=== PATIENT | female | born 1965 | race Two or more races ===

== ENCOUNTER 2019-02-22 18:05 | Inpatient (IN) | payer MEDICAID ==
[~2019-02-22] VITALS: Ht 149.9 cm; Wt 62.6 kg
[2019-02-22] MEDS ORDERED: ASPIRIN 81MG TABLET PO ONE (18:45)
[2019-02-22] MEDS ORDERED: NITROGLYCERIN 0.4MG TABLET SL SL PRN (18:45)
[2019-02-22 19:18] LABS: BASOPHILS % 1.1 % (0.0-2.0); EOSINOPHILS % 2.8 % (0.0-5.0); HEMATOCRIT. 37.1 % (36.0-48.0); HEMOGLOBIN. 12.6 g/dL (12.0-16.0); LYMPHOCYTES % 43.3 % (20.0-50.0); MEAN CORPUSCULAR HEMOGLOBIN 27.4 pg (28.0-32.0); MEAN CORPUSCULAR VOLUME 80.9 fL (81.0-99.0); MEAN PLATELET VOLUME 8.1 fl (7.4-10.4); MONOCYTES % 6.8 % (2.0-8.0); PLATELET 272 x1000/uL (130-400); RED BLOOD CELL COUNT 4.58 mill/uL (4.2-5.4); RED CELL DISTRIBUTION WIDTH 13.9 % (11.6-14.6)
[2019-02-22 19:37] LABS: CHLORIDE 107 mEq/L (98-107)
[2019-02-22] MEDS ORDERED: ACETAMINOPHEN WITH CODEINE 300/30MG TABLET PO ONE (20:15)
[2019-02-22] MEDS ORDERED: ENOXAPARIN 80MG/0.8ML SYR SUBCUT ONE (21:00)
[2019-02-22] MEDS ORDERED: CLONIDINE 0.1MG TABLET PO PRN (22:45)
[2019-02-22] MEDS ORDERED: IPRATROPIUM/ALBUTEROL 0.5-3(2.5)MG/3ML NEB NEB PRN (22:45)
[2019-02-22] MEDS ORDERED: MAGNESIUM/ALUMINUM HYDROXIDE/SIMETHICONE 30ML UDC PO PRN (22:45)
[2019-02-22] MEDS ORDERED: ONDANSETRON HCL 4MG/2ML INJ IV PRN (22:45)
[2019-02-22] MEDS ORDERED: DOCUSATE SODIUM 100MG CAPSULE PO PRN (22:45)
[2019-02-22] MEDS ORDERED: ACETAMINOPHEN 325MG TABLET PO PRN (22:45)
[2019-02-23] VITALS: BP_SYST 106; BP_DIAS 64; BP_DIAS 69
[2019-02-23 00:09] LABS: CHLORIDE 106 mEq/L (98-107)
[2019-02-23] MEDS: HYDROCODONE/ACETAMINOPHEN 5/325MG TABLET PO PRN ×4 (01:23→21:29)
[2019-02-23] MEDS ORDERED: INSU100I28 SQ (03:23)
[2019-02-23] MEDS ORDERED: METO25TA6 PO (03:23)
[2019-02-23] MEDS ORDERED: GABA-531 MT (03:23)
[2019-02-23] MEDS ORDERED: OMEG-118 MT (03:23)
[2019-02-23] MEDS ORDERED: ATOR-2 MT (03:23)
[2019-02-23] MEDS ORDERED: SERT50TA12 MT (03:23)
[2019-02-23] MEDS ORDERED: LORA10TA7 MT (03:23)
[2019-02-23] MEDS ORDERED: ASPI-1393 PO (03:23)
[2019-02-23] MEDS ORDERED: METO5TAB94 MT (03:23)
[2019-02-23] MEDS ORDERED: CHOL200074 MT (03:23)
[2019-02-23] MEDS ORDERED: ONDA4TAB5 MT (03:23)
[2019-02-23] MEDS ORDERED: ALBU4TAB6 MT (03:23)
[2019-02-23] MEDS ORDERED: CLOP75TA4 MT (03:23)
[2019-02-23] MEDS ORDERED: GLIP5TAB12 MT (03:23)
[2019-02-23] MEDS ORDERED: DOCU-150 MT (03:23)
[2019-02-23] MEDS ORDERED: PANT40TA4 MT (03:23)
[2019-02-23] MEDS ORDERED: INSU100V3 SUBCUT (03:23)
[2019-02-23] MEDS ORDERED: METF-815 MT (03:23)
[2019-02-23] MEDS ORDERED: AMIT25TA9 PO (03:23)
[2019-02-23 04:00] VITALS: BP 101/60
[2019-02-23] MEDS ORDERED: DEXTROSE 50% WATER 50ML SYRINGE IV PRN (06:00)
[2019-02-23] MEDS: BLOOD SUGAR DIAGNOSTIC STRIP TEST SCH ×4 (06:41→21:00)
[2019-02-23] MEDS: INSULIN LISPRO 100 UNITS/ML SUBCUT SCH ×4 (06:43→21:22)
[2019-02-23 08:00] VITALS: BP 112/72
[2019-02-23] MEDS ORDERED: PNEUMOCOCCAL 23-VAL P-SAC VAC 0.5 ML IM ONE (08:00)
[2019-02-23] MEDS: ASPIRIN 81MG EC TABLET PO SCH (08:37)
[2019-02-23] MEDS: CLOPIDOGREL 75MG TABLET PO SCH (08:38)
[2019-02-23 09:43] LABS: EOSINOPHILS % 3.5 % (0.0-5.0); HEMATOCRIT. 36.9 % (36.0-48.0); HEMOGLOBIN. 12.2 g/dL (12.0-16.0); LYMPHOCYTES % 59.7 % (20.0-50.0); MEAN CORPUSCULAR HEMOGLOBIN 27.1 pg (28.0-32.0); MEAN CORPUSCULAR VOLUME 81.7 fL (81.0-99.0); MEAN PLATELET VOLUME 8.5 fl (7.4-10.4); MONOCYTES % 5.2 % (2.0-8.0); NEUTROPHILS % 30.6 % (40.0-76.0); PLATELET 258 x1000/uL (130-400); RED BLOOD CELL COUNT 4.52 mill/uL (4.2-5.4)
[2019-02-23 10:07] LABS: LDL CHOLESTEROL 65 mg/dL (5-100)
[2019-02-23 10:08] LABS: CREATINE KINASE 53 IU/L (26-192); HDL CHOLESTEROL 29 mg/dL (40-59)
[2019-02-23 10:09] LABS: CREATINE KINASE MB FRACTION < 1.0 ng/mL (0.5-3.6)
[2019-02-23 12:00] VITALS: BP 102/66
[2019-02-23] MEDS ORDERED: MAGNESIUM 2 G PREMIX 50 ML IV SCH (12:00)
[2019-02-23 16:00] VITALS: BP 119/73
[2019-02-23 16:47] LABS: CREATINE KINASE 52 IU/L (26-192)
[2019-02-23 16:48] LABS: CREATINE KINASE MB FRACTION < 1.0 ng/mL (0.5-3.6)
[2019-02-23 17:09] LABS: CLARITY URINE CLOUDY (CLEAR); COLOR URINE YELLOW (YELLOW); KETONES URINE NEGATIVE (NEGATIVE); LEUKOCYTE ESTERASE URINE TRACE (NEGATIVE); NITRITE URINE NEGATIVE (NEGATIVE); OCCULT BLOOD URINE NEGATIVE (NEGATIVE); PH URINE 5.5 (4.5-8.0); PROTEIN URINE NEGATIVE (NEGATIVE); SPECIFIC GRAVITY URINE 1.022 (1.005-1.030); UROBILINOGEN URINE 0.2 E.U./dL (0.2-1.0)
[2019-02-23 17:18] LABS: *AMPHETAMINES SCREEN URINE NEGATIVE (NEGATIVE); *BARBITURATES SCREEN URINE NEGATIVE (NEGATIVE); *BENZODIAZEPINES SCREEN URINE NEGATIVE (NEGATIVE)
[2019-02-23 17:20] LABS: *COCAINE SCREEN URINE NEGATIVE (NEGATIVE); CANNABINOID URINE SCREEN NEGATIVE (NEGATIVE); METHADONE URINE SCREEN NEGATIVE (NEGATIVE); OPIATES URINE SCREEN PRESUMTIVE POSITIVE (NEGATIVE); PHENCYCLIDINE URINE SCREEN NEGATIVE (NEGATIVE)
[2019-02-23 20:00] VITALS: BP 108/71
[2019-02-23] MEDS: SERTRALINE HCL 50MG TABLET PO SCH (20:30)
[2019-02-23] MEDS ORDERED: ZOLPIDEM TARTRATE 5MG TABLET PO PRN (21:00)
[2019-02-23] MEDS: METOPROLOL TARTRATE 25MG TABLET PO SCH (21:00)
[2019-02-23] MEDS ORDERED: ATORVASTATIN CALCIUM 20MG TABLET PO SCH (21:00)
[2019-02-23] MEDS ORDERED: AMITRIPTYLINE 25MG TABLET PO SCH (21:00)
[2019-02-23] MEDS: GABAPENTIN 300MG CAPSULE PO SCH (21:21)
[2019-02-23] MEDS: METOCLOPRAMIDE HCL 5MG TABLET PO SCH (21:21)
[2019-02-23] MEDS ORDERED: INSULIN GLARGINE UD 100 UNITS/ML SYR SUBCUT SCH (22:00)
[2019-02-24] VITALS: BP 116/75
[2019-02-24 04:00] VITALS: BP 99/59
[2019-02-24] MEDS: BLOOD SUGAR DIAGNOSTIC STRIP TEST SCH ×2 (05:55→12:22)
[2019-02-24] MEDS: HYDROCODONE/ACETAMINOPHEN 5/325MG TABLET PO PRN ×2 (06:14→09:48)
[2019-02-24] MEDS: INSULIN LISPRO 100 UNITS/ML SUBCUT SCH ×2 (06:16→12:30)
[2019-02-24] MEDS ORDERED: PANTOPRAZOLE 40MG DR TABLET PO SCH (07:10)
[2019-02-24] MEDS ORDERED: GLIPIZIDE 5MG TABLET PO SCH (07:40)
[2019-02-24] MEDS ORDERED: METFORMIN HCL 500MG TABLET PO SCH (07:40)
[2019-02-24 08:00] VITALS: BP 113/70
[2019-02-24] MEDS ORDERED: LORATADINE 10MG TABLET PO SCH (09:00)
[2019-02-24] MEDS: CLOPIDOGREL 75MG TABLET PO SCH (09:45)
[2019-02-24] MEDS: ASPIRIN 81MG EC TABLET PO SCH (09:45)
[2019-02-24] MEDS: SERTRALINE HCL 50MG TABLET PO SCH (09:45)
[2019-02-24] MEDS: GABAPENTIN 300MG CAPSULE PO SCH (09:46)
[2019-02-24] MEDS: METOCLOPRAMIDE HCL 5MG TABLET PO SCH (09:46)
[2019-02-24] MEDS: METOPROLOL TARTRATE 25MG TABLET PO SCH (09:47)
[2019-02-24 11:58] VITALS: BP 113/64
== END 2019-02-24 12:57 | disposition home or self-care (01) | DRG 203 ==
LOC: ER 18:05 → 8WST 22:00 → EDBEDREQ 22:02 → EDBEDREQTM 22:02 → ENRESERV 22:46 → 8WST 02-23 00:16
PROVIDERS: ADMIT Internal Medicine; ATTEND Internal Medicine
DX: M94.0 Chondrocostal junction syndrome [Tietze] (principal); E11.649 Type 2 diabetes mellitus with hypoglycemia without coma; I11.9 Hypertensive heart disease without heart failure; I25.10 Atherosclerotic heart disease of native coronary artery without angina pectoris; I25.2 Old myocardial infarction; E78.1 Pure hyperglyceridemia; J45.909 Unspecified asthma, uncomplicated; K21.9 Gastro-esophageal reflux disease without esophagitis; M54.30 Sciatica, unspecified side; E11.65 Type 2 diabetes mellitus with hyperglycemia; Z72.0 Tobacco use; Z79.02 Long term (current) use of antithrombotics/antiplatelets; Z79.899 Other long term (current) drug therapy; Z79.82 Long term (current) use of aspirin; Z79.84 Long term (current) use of oral hypoglycemic drugs
CPT/HCPCS: 36415; 71045; 80048; 80061; 80305; 81003; 82550; 82553; 82962; 83735; 83880; 84443; 84484; 90732; 93005; 93306; 93970; 96372; 99291; J1650; J1815; J3475; J7040; J8597